=== PATIENT | male | born 1975 | race African-American/Black ===

== ENCOUNTER 2022-12-03 22:10 | Emergency (ER) | payer OTHER ==
[~2022-12-03] VITALS: Ht 177.8 cm; Wt 56.7 kg
[2022-12-03] MEDS ORDERED: diphenhydrAMINE 50 MG/1 ML VIAL ONE (22:26)
[2022-12-03] MEDS ORDERED: methylPREDNISolone SOD SUCC 125 MG/2 ML VIAL ONE (22:26)
[2022-12-03] MEDS ORDERED: EPINEPHRINE 1:10,000 1 MG/10 ML DISP.SYRIN ONE (22:26)
[2022-12-03] MEDS ORDERED: FAMOTIDINE. 20 MG/2 ML VIAL IV ONE ×2 (22:27→22:30)
[2022-12-03] MEDS ORDERED: methylPREDNISolone SOD SUCC 125 MG/2 ML VIAL IV ONE (22:30)
[2022-12-03] MEDS ORDERED: diphenhydrAMINE 50 MG/1 ML VIAL IV ONE (22:30)
[2022-12-03] MEDS ORDERED: IV NORMAL SALINE 1000 ML BAG IV ONE (22:30)
[2022-12-03] MEDS ORDERED: EPINEPHRINE 1 MG/1 ML AMP SQ ONE (22:30)
[2022-12-03] MEDS ORDERED: EPINEPHRINE 1 MG/1 ML AMP ONE (22:41)
[2022-12-03 22:51] LABS: HEMATOCRIT 38.6 % (36.7-47.1); MEAN CORPUSCULAR HEMOGLOBIN 28.6 uug (23.8-33.4); MEAN CORPUSCULAR VOLUME 84.4 fL (73.0-96.2); PLATELET COUNT (AUTO) 371 K/uL (152-348)
[2022-12-03 23:01] LABS: CARBON DIOXIDE 30 mmol/L (21-32); CHLORIDE 104 mmol/L (98-107); CREATININE 0.9 mg/dL (0.6-1.3); GLUCOSE 76 mg/dL (74-106); POTASSIUM 3.1 mmol/L (3.5-5.1); UREA NITROGEN, BLOOD 19 mg/dL (7-18)
--- NOTE | 2022-12-03 23:36 | NUR ---
Patient's at bedside
--- NOTE | 2022-12-04 03:43 | NUR ---
Patient discharged to home in stable condition. Written and verbal after care instructions given. Patient and patient's verbalizes understanding of instructions. Stressed follow up or return to ER for worsening s/s.
[2022-12-04 03:53] VITALS: BP 130/82
== END 2022-12-04 03:53 | disposition home or self-care (01) ==
LOC: ER 22:12
DX: R47.81 Slurred speech (principal); R20.2 Paresthesia of skin; R07.89 Other chest pain; F17.210 Nicotine dependence, cigarettes, uncomplicated; Z88.2 Allergy status to sulfonamides; Z88.8 Allergy status to other drugs, medicaments and biological substances
CPT/HCPCS: 99285; 96374; 70450; 71045; 96375; 96361; 80048; 85025; 84484 ×2; 36415 ×2; 93005; 96372; J1200; J0171; J3490; J2930; J7040; A4663